=== PATIENT | male | born 1985 | race Asian ===

== ENCOUNTER 2017-05-24 20:13 | Emergency (ER) | payer MEDICAID ==
--- NOTE | 2017-05-24 20:33 | EDPHY ---
H & P - Medical/Surgical History Hx Asthma: No Hx Chronic Respiratory Disease: No Hx Diabetes: No Hx Cardiac Disease: No Hx Renal Disease: No Hx Cirrhosis: No Hx Alcoholism: No Hx HIV/AIDS: No Hx Splenectomy or Spleen Trauma: No Other PMH: has had similar episodes in past - Social History Smoking Status: Never smoked Time Seen by Provider: 05/24/17 20:29 Constitutional: Initial Vital Signs Temperature (C) 36.5 C 05/24/17 20:31 Heart Rate 84 05/24/17 20:31 Respiratory Rate 16 05/24/17 20:31 Blood Pressure 120/67 05/24/17 20:31 O2 Sat (%) 94 05/24/17 20:31 O2 Delivery Mode Room Air Allergies/Adverse Reactions: No Known Allergies Allergy (Verified 05/24/17 20:29) Home Medications: Medication Instructions Recorded NK [No Known Home Meds] 06/28/14 Medical Decision Making ED Course/Re-evaluation: CHIEF COMPLAINT: EtOH, possible hallucinations. HISTORY OF PRESENT ILLNESS: This patient is a 32 year old male arriving on M1 hold placed by police for evaluation of alcohol intoxication and possible hallucinations. He has history of similar episodes in the past. The patient had apparently expressed homicidal imagination towards imaginary people. Prior to this, he had been "spreading love ". During my interview, the patient states "I do not even understand what's going on". He admits to alcohol use tonight. He states that he may be here in the emergency department because "I stood up for somebody" and "I had to do something to defend him". No suicidal ideation. Patient does not admit to any other drug use at this time. Patient denies any injuries denies loss of consciousness denies any recent trauma. REVIEW OF SYSTEMS: A 10 point review of systems was performed and is negative with the exception of the elements mentioned in the history of present illness. PHYSICAL EXAM: General Appearance: Alert, well hydrated, appropriate, and non-toxic appearing. Head: Atraumatic without scalp tenderness or obvious injury Eyes: Pupils equal, round, reactive to light and accommodation, EOMI, no trauma , no injection. Throat: There is no erythema or exudates, no lesions, normal tonsils, mucus membranes moist. Neck: Supple, non-tender, no lymphadenopathy. Respiratory: No retractions, no distress. Lungs are clear to auscultation bilaterally. Cardiovascular: Regular rate and rhythm. Good capillary refill all extremities. Musculoskeletal: Normal active ROM of all extremities, atraumatic. Neurological: Alert, appropriate, and interactive. Nonfocal neuro exam. Skin: No rashes, good turgor, no nodules on palpation. PAST MEDICAL HISTORY: Mood disorder, catatonia. PAST SURGICAL HISTORY: Noncontributory SOCIAL HISTORY: The patient is from [facility]. Single. Lives in [place]. DIFFERENTIAL DIAGNOSIS: The differential diagnosis for the patient's altered mental status included but was not limited to hypoglycemia, infectious process, electrolyte abnormality, head injury, neurologic process, anemia, cardiac process, and intoxicants. MEDICAL DECISION MAKING: I serially examined this patient since the patient's arrival here in the emergency department. The patient continues to become more and more sober with each examination. Plan for psychiatric evaluation when he is sober. 21:00 Care of this patient transferred to Dr. Nichole at shift change. (Emerson Nichole) Patient has been evaluated at 1:00 p.m.. The patient is now sober. He denies suicidal or homicidal ideation to mental health. They feel he is appropriate for outpatient management. (Rocky Pepper) Other Provider: 2300 care assumed by me from Dr. Nichole pending sober evaluation. 0700 patient signed out to Dr. Pepper pending mental health evaluation. No issues during my care this patient overnight (Jose Hernandez) I assumed care of this patient from Dr. Hernandez at 7 am. Patient was seen by me at 7:10. He is stable. He asks for a glass of water. He is awaiting sobriety and evaluation. (Rocky Pepper) - Data Points Laboratory Results: Laboratory Results 05/24/17 20:30 05/24/17 20:30 Departure - Departure Disposition: Home, Routine, Self-Care Clinical Impression: Alcoholic intoxication Qualifiers: Complication of substance-induced condition: with unspecified complication Qualified Code(s): F10.929 - Alcohol use, unspecified with intoxication, unspecified Condition: Good Instructions: Alcohol Intoxication (ED) Additional Instructions: Do not drink more alcohol today. Return for further thoughts of harming herself or others. Follow up with mental health as they have recommended Referrals: Patient,NotPresent [Unknown] - As per Instructions Report Scribed for: Emerson Nichole Report Scribed by: Keena Phoenix Date of Report: 05/24/17 Time of Report: 21:31
[2017-05-24 20:39] LABS: PLATELET COUNT 230 10^3/uL (150-400)
[2017-05-24 22:59] VITALS: BP 107/71; PULSE 87; RESP 18; TEMP 98.1; O2SAT 97
== END 2017-05-25 13:40 | disposition home or self-care (01) ==
LOC: EDUNIT#
DX: F10.929 Alcohol use, unspecified with intoxication, unspecified (principal)
CPT/HCPCS: 80305; G0480

== ENCOUNTER → 2017-05-27 | Outpatient (CLI) | payer MEDICAID | LOC: FIMAGING 16:07 | PROVIDERS: ATTEND Physician Assistant | DX: Z11.1 Encounter for screening for respiratory tuberculosis (principal) ==